=== PATIENT | male | born 1985 | race Caucasian/White ===

== ENCOUNTER → 2016-10-06 | Outpatient (CLI) | payer OTHER ==
[~2016-10-06] VITALS: Ht 180.3 cm; Wt 79.3 kg
[2016-10-06 15:55] VITALS: BP 146/77; PULSE 87; Ht 180.3 cm; Wt 79.3 kg
== END | disposition home or self-care (01) ==
LOC: C.NEUR 15:35
PROVIDERS: ATTEND Internal Medicine Pulmonary Disease
DX: G47.33 Obstructive sleep apnea (adult) (pediatric) (principal)

== ENCOUNTER → 2017-04-06 | Outpatient (CLI) | payer OTHER ==
[~2017-04-06] VITALS: Ht 180.3 cm; Wt 78.0 kg
[2017-04-06 13:13] VITALS: BP 109/64; PULSE 75; Ht 180.3 cm; Wt 78.0 kg
== END | disposition home or self-care (01) ==
LOC: C.NEUR 12:27
PROVIDERS: ATTEND Physician Assistant Medical
DX: G47.33 Obstructive sleep apnea (adult) (pediatric) (principal)

== ENCOUNTER → 2017-06-16 | Outpatient (CLI) | payer OTHER ==
[2017-06-16 15:33] LABS: HEMATOCRIT 49.1 % (42-52); MEAN CELL VOLUME 89.6 fL (80-100); MEAN CORPUSCULAR HEMOGLOBIN 30.8 pg (25-34); MEAN CORPUSCULAR HGB CONC 34.4 g/dl (32-36); MEAN PLATELET VOLUME 9.6 fL (7.4-10.4); PLATELET COUNT 207 K/uL (130-400); RED BLOOD COUNT 5.48 M/uL (4.7-6.1); WHITE BLOOD COUNT 5.65 K/uL (4.8-10.8)
[2017-06-16 16:04] LABS: ALT/SGPT 30 U/L (12-78); AST/SGOT 16 U/L (15-37); BLOOD UREA NITROGEN 19 mg/dl (7-18); BUN/CREATININE RATIO 18.4 (10-20); CALCIUM 9.4 mg/dl (8.5-10.1); CARBON DIOXIDE 32 mmol/L (21-32); CHLORIDE 103 mmol/L (98-107); CREATININE 1.04 mg/dl (0.60-1.40); GLUCOSE 92 mg/dl (70-99); SODIUM 136 mmol/L (136-145)
[2017-06-16 16:15] LABS: ALB/GLOB RATIO 1.1 (0.9-2); ALKALINE PHOSPHATASE 79 U/L (45-117); THYROID STIMULATING HORMONE 0.685 uIu/ml (0.300-4.500)
== END | disposition home or self-care (01) ==
LOC: C.LAB1850 14:33
PROVIDERS: ATTEND Internal Medicine
DX: R53.83 Other fatigue (principal)

== ENCOUNTER → 2017-06-28 | Outpatient (CLI) | payer OTHER ==
[~2017-06-28] MED LIST: BUSP-8 PO; CHOL1000 PO
--- NOTE | 2017-06-28 18:27 | DIAGNOSTIC IMAGING REPORT ---
CHEST 2 VIEWS ROUTINE CLINICAL HISTORY: Dyspnea on exertion. COMPARISON STUDY: No previous studies for comparison. FINDINGS: Lung volumes are normal. Lungs are clear. No pneumothorax or pleural effusion is present. Cardiac size is normal. Mediastinal contours are normal. IMPRESSION: No acute cardiopulmonary findings. Electronically signed by: Richard Ramirez M.D. 06/28/2017 6:25 PM Dictated Date/Time: 06/28/2017 6:07 PM
== END | disposition home or self-care (01) ==
LOC: C.RAD 17:18
PROVIDERS: ATTEND Internal Medicine
DX: R06.09 Other forms of dyspnea (principal)

== ENCOUNTER 2017-06-29 02:36 | Emergency (ER) | payer OTHER ==
[~2017-06-29] VITALS: Ht 180.3 cm; Wt 68.5 kg
[2017-06-29 02:40] VITALS: TEMP 36.7; Ht 180.3 cm; Wt 68.5 kg
--- NOTE | 2017-06-29 03:01 | EMERGENCY ROOM VISIT NOTE ---
History Report prepared by Andrea: Lynn Watkins Under the Supervision of: Dr. Keagan Solorzano M.D. First contact with patient: 02:48 Chief Complaint: CARDIAC ASSESSMENT Stated Complaint: HEART PALPITATIONS,BLUE NAILS,LIGHT HEADED History of Present Illness The patient is a 31 year old male who presents to the Emergency Room with complaints of heart palpitations beginning four days ago. The patient reports feeling lightheaded and having shortness of breath. He denies any headache or recent episodes of syncope. The patient also notes that his legs were swollen prior to arrival and his nail beds are blue. The patient has a history of anxiety and sleep apnea. The patient was seen in the ED yesterday and had a chest X-ray which was unremarkable. He denies any recent travel or history of blood clots. The patient had blood work done a month ago which was unremarkable. He does not smoke. Source of History: patient Onset: 4 days ago Position: other (generalized) Quality: other (heart palpitations) Associated Symptoms: + SOB, No headache Review of Systems See HPI for pertinent positives & negatives. A total of 10 systems reviewed and were otherwise negative. Past Medical & Surgical Medical Problems: (1) Anxiety (2) Sleep apnea Family History Patient reports no known family medical history. Social History Smoking Status: Never Smoker Smokeless Tobacco Use: No Occupation Status: employed Current/Historical Medications Scheduled Buspirone Hcl (Buspirone Hcl), 10 MG PO DAILY Cholecalciferol (Vitamin D3), 2,000 UNITS PO DAILY Allergies Coded Allergies: No Known Allergies (Unverified , 06/29/17) Physical Exam Vital Signs Date Time Temp Pulse Resp B/P (MAP) Pulse Ox O2 Delivery O2 Flow Rate FiO2 06/29/17 06:08 78 20 127/82 98 06/29/17 05:27 57 20 127/63 96 Room Air 06/29/17 03:32 62 06/29/17 03:31 60 20 127/72 98 Room Air 06/29/17 02:40 36.7 77 22 140/93 99 Room Air Physical Exam GENERAL: Patient is anxious appearing and in minimal distress. HEENT: No acute trauma, normocephalic atraumatic, mucous membranes moist, no nasal congestion, no scleral icterus. NECK: No stridor, no adenopathy, no meningismus, trachea is midline. LUNGS: No dyspnea. Clear to auscultation and equal bilaterally. No wheeze, no rhonchi. HEART: Regular rate and rhythm. No murmurs, rubs, gallops appreciated. ABDOMEN: Soft, nontender, bowel sounds positive, no masses appreciated, no peritonitis. BACK: No midline tenderness, no CVA tenderness EXTREMITIES: Normal motion all extremities, no cyanosis, no edema. NEUROLOGIC: Alert and oriented, no acute motor or sensory deficits, no focal weakness, cranial nerves grossly intact. SKIN: No rash, no jaundice, no diaphoresis. Medical Decision & Procedures ER Provider Diagnostic Interpretation: Radiology results and stated below per my review and radiologist interpretation: CTA CHEST: No evidence of filling defect to suggest pulmonary embolism. Thoracic aorta are within limits. No pericardial or pleural effusion. No focal consolidation. Radiologist: Teja Cueto Laboratory Results 06/29/17 02:50 Red Blood Count 5.39, Mean Corpuscular Volume 87.4, Mean Corpuscular Hemoglobin 31.2, Mean Corpuscular Hemoglobin Concent 35.7, Mean Platelet Volume 9.4, Neutrophils (%) (Auto) 48.4, Lymphocytes (%) (Auto) 37.2, Monocytes (%) (Auto) 10.1, Eosinophils (%) (Auto) 3.8, Basophils (%) (Auto) 0.5, Neutrophils # (Auto ) 2.96, Lymphocytes # (Auto) 2.27, Monocytes # (Auto) 0.62, Eosinophils # (Auto ) 0.23, Basophils # (Auto) 0.03 06/29/17 02:50 Test 06/29/17 02:50 White Blood Count 6.11 K/uL (4.8-10.8) Red Blood Count 5.39 M/uL (4.7-6.1) Hemoglobin 16.8 g/dL (14.0-18.0) Hematocrit 47.1 % (42-52) Mean Corpuscular Volume 87.4 fL (80-100) Mean Corpuscular Hemoglobin 31.2 pg (25-34) Mean Corpuscular Hemoglobin Concent 35.7 g/dl (32-36) Platelet Count 176 K/uL (130-400) Mean Platelet Volume 9.4 fL (7.4-10.4) Neutrophils (%) (Auto) 48.4 % Lymphocytes (%) (Auto) 37.2 % Monocytes (%) (Auto) 10.1 % Eosinophils (%) (Auto) 3.8 % Basophils (%) (Auto) 0.5 % Neutrophils # (Auto) 2.96 K/uL (1.4-6.5) Lymphocytes # (Auto) 2.27 K/uL (1.2-3.4) Monocytes # (Auto) 0.62 K/uL (0.11-0.59) Eosinophils # (Auto) 0.23 K/uL (0-0.5) Basophils # (Auto) 0.03 K/uL (0-0.2) RDW Standard Deviation 39.8 fL (36.4-46.3) RDW Coefficient of Variation 12.4 % (11.5-14.5) Immature Granulocyte % (Auto) 0.0 % Immature Granulocyte # (Auto) 0.00 K/uL (0.00-0.02) D-Dimer 850 ug/L FEU (0-500) Anion Gap 5.0 mmol/L (3-11) Est Creatinine Clear Calc Drug Dose 93.4 ml/min Estimated GFR () 102.0 Estimated GFR (Non- 88.0 BUN/Creatinine Ratio 17.8 (10-20) Calcium Level 8.9 mg/dl (8.5-10.1) Troponin I < 0.015 ng/ml (0-0.045) Laboratory results as reviewed by me. ECG Indication: palpitations Rate (beats per minute): 71 Rhythm: normal sinus Findings: no acute ischemic change, no ectopy ED Course 0250: The patient was evaluated in room B4B. A complete history and physical exam was performed. 0411: The patient is feeling better. I discussed his elevated D-dimer and he is agreeable to CT chest. 0546: The patient was sleeping and was easily awoke. I updated him on his test results and he is ready to be discharged. 0608: Reevaluated the patient. Discussed results and discharge instructions: He verbalized understanding and agreement. The patient is ready for discharge. Medical Decision Differential: NSR, SVT, PACs, PVCs, Cardiac Dysrhythmia, Endocrine Dysfunction, Eletrolyte/Metabolic Abnormality, Pulmonary Embolism, Infectious, GI, amongst other pathologies entertained. 31 yr old male with intermittent heart palpitations recently with clearly aspect of anxiety. Already evaluated by PCP without clear cause thus wider lab testing done here. No palps here and monitor unremarkable over 3+ hours. Exam benign. Labs/EKG normal other than mildly elevated Dimer, which given his report of leg swelling (which is not currently present) will go ahead with CT PE which was fortunately unremarkable. He has no evidence CHF, ACS. Has had no arrhythmias. Will defer back to PCP for further work-up. Reviewed symptoms to monitor as outpatient and what to RTED for immediately. Medication Reconcilliation Current Medication List: was personally reviewed by me Blood Pressure Screening Patient's blood pressure: Normal blood pressure Impression Primary Impression: Intermittent palpitations Scribe Attestation The scribe's documentation has been prepared under my direction and personally reviewed by me in its entirety. I confirm that the note above accurately reflects all work, treatment, procedures, and medical decision making performed by me. Departure Information Dispostion Home / Self-Care Referrals RV. Bentley MD (PCP) Forms IMPORTANT VISIT INFORMATION Patient Instructions Heart Palpitations, My [facility]
[2017-06-29 03:02] LABS: BASO % 0.5 %; BASO ABS # 0.03 K/uL (0-0.2); COMPLETE YES; EOS % 3.8 %; HEMATOCRIT 47.1 % (42-52); LYMPH % 37.2 %; LYMPH ABS # 2.27 K/uL (1.2-3.4); MEAN CELL VOLUME 87.4 fL (80-100); MEAN CORPUSCULAR HEMOGLOBIN 31.2 pg (25-34); MEAN CORPUSCULAR HGB CONC 35.7 g/dl (32-36); MEAN PLATELET VOLUME 9.4 fL (7.4-10.4); MONO % 10.1 %; NEUT % 48.4 %; PLATELET COUNT 176 K/uL (130-400); RED BLOOD COUNT 5.39 M/uL (4.7-6.1); WHITE BLOOD COUNT 6.11 K/uL (4.8-10.8)
[2017-06-29] MEDS ORDERED: BUSP-8 PO (03:06)
[2017-06-29] MEDS ORDERED: CHOL1000 PO (03:06)
[2017-06-29 03:24] LABS: BLOOD UREA NITROGEN 20 mg/dl (7-18); BUN/CREATININE RATIO 17.8 (10-20); CALCIUM 8.9 mg/dl (8.5-10.1); CARBON DIOXIDE 30 mmol/L (21-32); CHLORIDE 104 mmol/L (98-107); CREATININE 1.11 mg/dl (0.60-1.40); GLUCOSE 88 mg/dl (70-99); POTASSIUM 3.5 mmol/L (3.5-5.1); SODIUM 139 mmol/L (136-145)
[2017-06-29] MEDS ORDERED: OPTIRAY 320 IV PRN (04:45)
[2017-06-29 06:08] VITALS: BP 127/82; PULSE 78; O2SAT 98
--- NOTE | 2017-06-29 07:29 | DIAGNOSTIC IMAGING REPORT ---
CHEST CTA for PULMONARY ARTERIES CT DOSE: 352.63 mGy.cm HISTORY: Atypical chest pain. Heart palpitations. TECHNIQUE: Multiaxial CT images of the chest were performed following the intravenous administration of contrast to evaluate the pulmonary arteries. Maximal intensity projection images were also obtained. A dose lowering technique was utilized adhering to the principles of ALARA. COMPARISON STUDY: None. FINDINGS: There is a normal caliber thoracic aorta with no evidence for dissection. There is no evidence for pulmonary embolus. No pleural effusions. No pneumothorax. The liver and spleen are unremarkable. No mediastinal or hilar lymphadenopathy. The central airways are patent. The lungs are clear. IMPRESSION: No evidence for pulmonary embolus. Electronically signed by: Teja Sanchez M.D. 06/29/2017 7:28 AM Dictated Date/Time: 06/29/2017 7:25 AM
== END 2017-06-29 06:09 | disposition home or self-care (01) ==
LOC: C.EDB 02:37
DX: R00.2 Palpitations (principal); F41.9 Anxiety disorder, unspecified; G47.39 Other sleep apnea; Z79.899 Other long term (current) drug therapy

== ENCOUNTER → 2017-09-27 | Outpatient (CLI) | payer OTHER ==
[2017-09-27 18:52] LABS: BASO % 0.6 %; BASO ABS # 0.03 K/uL (0-0.2); EOS % 3.8 %; HEMATOCRIT 44.4 % (42-52); HEMOGLOBIN 15.5 g/dL (14.0-18.0); IG# 0.01 K/uL (0.00-0.02); LYMPH % 31.1 %; LYMPH ABS # 1.66 K/uL (1.2-3.4); MEAN CELL VOLUME 87.9 fL (80-100); MEAN CORPUSCULAR HEMOGLOBIN 30.7 pg (25-34); MEAN CORPUSCULAR HGB CONC 34.9 g/dl (32-36); MEAN PLATELET VOLUME 9.6 fL (7.4-10.4); MONO % 9.6 %; MONO ABS # 0.51 K/uL (0.11-0.59); NEUT % 54.7 %; NEUT ABS # 2.92 K/uL (1.4-6.5); PLATELET COUNT 210 K/uL (130-400); RED CELL DISTRIBUTION WIDTH CV 12.6 % (11.5-14.5); WHITE BLOOD COUNT 5.33 K/uL (4.8-10.8)
[2017-09-27 19:13] LABS: ALBUMIN 3.7 gm/dl (3.4-5.0); ALT/SGPT 25 U/L (12-78); AST/SGOT 16 U/L (15-37); BLOOD UREA NITROGEN 19 mg/dl (7-18); CALCIUM 9.2 mg/dl (8.5-10.1); CARBON DIOXIDE 32 mmol/L (21-32); CREATININE 0.91 mg/dl (0.60-1.40); GLUCOSE 85 mg/dl (70-99); LIPASE 150 U/L (73-393); SODIUM 139 mmol/L (136-145)
[2017-09-27 19:16] LABS: ALKALINE PHOSPHATASE 79 U/L (45-117); TOTAL PROTEIN 7.2 gm/dl (6.4-8.2)
== END | disposition home or self-care (01) ==
LOC: C.LAB 17:43
PROVIDERS: ATTEND Internal Medicine
DX: J02.9 Acute pharyngitis, unspecified (principal); R59.0 Localized enlarged lymph nodes; R17 Unspecified jaundice

== ENCOUNTER → 2017-10-04 | Outpatient (CLI) | payer OTHER ==
--- NOTE | 2017-10-04 15:40 | DIAGNOSTIC IMAGING REPORT ---
CHEST 2 VIEWS ROUTINE CLINICAL HISTORY: 31 years-old Male presenting with R59.0 Cervical [id number] Shortness of [id number]. TECHNIQUE: PA and lateral views of the chest were obtained. COMPARISON: CT from 06/29/2017 and chest x-ray from 06/28/2017. FINDINGS: Cardiomediastinal silhouette normal. Lungs and pleural spaces clear. Osseous structures normal. Upper abdomen normal. IMPRESSION: 1. No acute cardiopulmonary disease. Electronically signed by: Kimo Harrison M.D. 10/04/2017 3:39 PM Dictated Date/Time: 10/04/2017 3:38 PM
[2017-10-04 15:51] LABS: BASO % 0.4 %; BASO ABS # 0.02 K/uL (0-0.2); EOS % 2.9 %; EOS ABS # 0.15 K/uL (0-0.5); HEMATOCRIT 47.1 % (42-52); HEMOGLOBIN 16.9 g/dL (14.0-18.0); IG# 0.01 K/uL (0.00-0.02); LYMPH % 27.1 %; LYMPH ABS # 1.39 K/uL (1.2-3.4); MEAN CORPUSCULAR HEMOGLOBIN 31.6 pg (25-34); MEAN CORPUSCULAR HGB CONC 35.9 g/dl (32-36); MEAN PLATELET VOLUME 9.6 fL (7.4-10.4); MONO ABS # 0.46 K/uL (0.11-0.59); NEUT % 60.4 %; NEUT ABS # 3.09 K/uL (1.4-6.5); PLATELET COUNT 224 K/uL (130-400); RED CELL DISTRIBUTION WIDTH CV 12.7 % (11.5-14.5); RED CELL DISTRIBUTION WIDTH SD 40.3 fL (36.4-46.3); WHITE BLOOD COUNT 5.12 K/uL (4.8-10.8)
[2017-10-04 16:09] LABS: BLOOD UREA NITROGEN 16 mg/dl (7-18); CALCIUM 8.9 mg/dl (8.5-10.1); CARBON DIOXIDE 30 mmol/L (21-32); CREATININE 1.11 mg/dl (0.60-1.40); GLUCOSE 107 mg/dl (70-99); POTASSIUM 4.2 mmol/L (3.5-5.1); SODIUM 138 mmol/L (136-145)
[2017-10-04 16:10] LABS: MONOSPOT NEG (NEG)
== END | disposition home or self-care (01) ==
LOC: C.RAD1850 15:06
PROVIDERS: ATTEND Internal Medicine
DX: R59.0 Localized enlarged lymph nodes (principal); R06.02 Shortness of breath

== ENCOUNTER → 2017-10-05 | Outpatient (CLI) | payer OTHER ==
[~2017-10-05] VITALS: Ht 180.3 cm; Wt 76.6 kg
[2017-10-05 13:30] VITALS: BP 113/69; PULSE 86; Ht 180.3 cm; Wt 76.6 kg
== END | disposition home or self-care (01) ==
LOC: C.NEUR 12:41
PROVIDERS: ATTEND Internal Medicine Pulmonary Disease
DX: G47.33 Obstructive sleep apnea (adult) (pediatric) (principal)

== ENCOUNTER → 2017-10-08 | Outpatient (CLI) | payer OTHER ==
--- NOTE | 2017-10-08 11:45 | DIAGNOSTIC IMAGING REPORT ---
NECK ULTRASONOGRAPHY CLINICAL HISTORY: Palpable neck mass COMPARISON STUDY: No previous studies for comparison. FINDINGS: Heart ultrasound to the areas of clinical concern was performed. Filler Block Inserter Remover images are submitted for interpretation. There are bilateral submandibular lymph nodes, the largest of which measures 23 x 17 x 4 mm in the right, and 13 x 10 x 6 mm and the left. These are not pathologically enlarged by size criteria. Clinical follow-up is recommended. IMPRESSION: 1. Bilateral submandibular lymph nodes which are not pathologically enlarged by size criteria. While nonspecific, these may be reactive. Clinical follow-up is advocated. If these nodes enlarge on repeat examination, fine-needle aspiration could always be obtained. Electronically signed by: Denny Owens M.D. 10/08/2017 11:43 AM Dictated Date/Time: 10/08/2017 11:39 AM
== END | disposition home or self-care (01) ==
LOC: C.ULTR 11:02
PROVIDERS: ATTEND Internal Medicine
DX: R22.1 Localized swelling, mass and lump, neck (principal)